=== PATIENT | male | born 1980 | race Caucasian/White ===

== ENCOUNTER 2020-04-21 16:22 | Emergency (ER) | payer OTHER ==
[~2020-04-21] VITALS: Ht 188 cm; Wt 73.5 kg
[2020-04-21] MEDS ORDERED: FLEXERIL PO (18:26)
[2020-04-21] MEDS ORDERED: TRAMADOL 50 MG50 MG PO (18:26)
[2020-04-21 18:37] VITALS: BP 116/65
== END 2020-04-21 18:37 | disposition home or self-care (01) ==
LOC: M.ERS 16:22
DX: S16.1XXA Strain of muscle, fascia and tendon at neck level, initial encounter (principal); M54.2 Cervicalgia; Z88.6 Allergy status to analgesic agent; Z87.891 Personal history of nicotine dependence; Z88.0 Allergy status to penicillin; V89.2XXA Person injured in unspecified motor-vehicle accident, traffic, initial encounter; Y93.89 Activity, other specified; Y92.89 Other specified places as the place of occurrence of the external cause; Y99.8 Other external cause status

== ENCOUNTER 2021-08-06 18:31 | Emergency (ER) | payer OTHER ==
[~2021-08-06] VITALS: Ht 188 cm; Wt 77.1 kg
[~2021-08-06 18:31] MED LIST: FLEXERIL PO; TRAMADOL 50 MG50 MG PO
[2021-08-06 18:36] VITALS: BP 142/85
== END 2021-08-06 20:11 | disposition left against medical advice (07) ==
LOC: M.ERS 18:31
DX: M79.642 Pain in left hand (principal); Z53.21 Procedure and treatment not carried out due to patient leaving prior to being seen by health care provider; W18.30XA Fall on same level, unspecified, initial encounter; Y93.89 Activity, other specified; Y92.89 Other specified places as the place of occurrence of the external cause; Y99.9 Unspecified external cause status